=== PATIENT | female | born 2000 | race Caucasian/White ===

== ENCOUNTER 2022-04-24 11:38 | Inpatient (IN) ==
[2022-04-24 13:06] LABS: Basophils % 0.3 % (0.0-0.8); Eosinophils % 0.1 % (0.00-10.9); Hematocrit 32.8 VOL% (35.7-47.0); Hemoglobin 11.1 GM/DL (12.0-16.0); Immature Granulocytes % 0.7 %; Immature Granulocytes Absolute 0.05 #; Lymphocytes # 1.6 10*3/uL (1.4-4.0); Lymphocytes % 21.4 % (21.3-54.2); Mean Corpuscular HGB Conc 33.8 GM/DL (32-36); Mean Platelet Volume 11.1 FL (9.6-12.0); Monocytes # 0.6 10*3/uL (0.11-0.8); Monocytes % 7.5 % (1.7-12.7); Platelet Count 204 T/CUMM (130-400); Red Blood Count 4.15 MC/CUMM (3.8-5.5); White Blood Count 7.6 T/CUMM (4-12)
[2022-04-24 13:17] LABS: INR 0.9; PT Patient Result 9.7 SECS (10.5-12.0); Partial Thromboplastin Time 24.3 SECS (23.7-32.9)
[2022-04-24 13:31] LABS: Albumin 2.5 G/DL (3.4-5.0); Bilirubin,Direct 0.36 MG/DL (0.0-0.20); Bilirubin,Total 0.7 MG/DL (0.20-1.00); Osmolality,Calculated 275.4 MOS/KG (273-304); Potassium 3.1 MMOL/L (3.5-5.1); Total Protein 6.5 G/DL (6.4-8.2); Uric Acid 3.6 MG/DL (2.6-6.0)
[2022-04-24 13:32] LABS: Mucus,Urine Occasional /LPF (Occasional); RBC,Urine 9 /HPF (0-4); Squamous Epithelial Cell,Urine Occasional /HPF (0-10)
[2022-04-24 13:35] LABS: Glucose,Urine (UA) Negative (Negative); Ketones,Urine Trace mg/dL (Negative); Nitrite,Urine Negative (Negative); Protein,Urine 100 mg/dL (Negative); Urine Appearance Clear (Clear); Urine Color Dark Yellow (Yellow)
[2022-04-24 13:36] LABS: Bilirubin,Urine Small mg/dL (Negative); Blood, Urine Negative (Negative)
[2022-04-24 13:39] LABS: Protein/Creatinine Ratio,Urine 0.4 RATIO
[2022-04-24] MEDS: LACTATED RINGERS 1,000 ML IV SCH ×2 (14:37→18:47)
[2022-04-24] MEDS: POTASSIUM CHLORIDE 20 MEQ TABLET PO SCH ×2 (15:08→22:38)
[2022-04-24] MEDS ORDERED: ONDANSETRON 4 MG/2 ML VIAL IV ONE (19:04)
[2022-04-24] MEDS: MEPERIDINE 50 MG/1 ML VIAL IV PRN (20:43)
[2022-04-25] MEDS: LACTATED RINGERS 1,000 ML IV SCH ×2 (00:34→08:43)
[2022-04-25] MEDS ORDERED: MEPERIDINE 50 MG/1 ML VIAL IM PRN (01:57)
[2022-04-25] MEDS: MEPERIDINE 50 MG/1 ML VIAL IV PRN ×6 (02:12→23:07)
[2022-04-25] MEDS: ONDANSETRON 4 MG/2 ML VIAL IV PRN ×4 (02:16→21:37)
[2022-04-25] MEDS ORDERED: MEPERIDINE 50 MG/1 ML VIAL IV PRN (07:00)
[2022-04-25 07:27] LABS: Bilirubin,Urine Negative (Negative); Blood, Urine Negative (Negative); Glucose,Urine (UA) Negative (Negative); Ketones,Urine Negative (Negative); Nitrite,Urine Negative (Negative); Protein,Urine Negative (Negative); Urine Appearance Clear (Clear); Urine Color Yellow (Yellow); Urine pH 7.5 (4.5-8.0)
[2022-04-25 07:31] LABS: Amorphous Crystals,Urine Few /HPF (Few); Mucus,Urine Occasional /LPF (Occasional); RBC,Urine <1 /HPF (0-4); Squamous Epithelial Cell,Urine Occasional /HPF (0-10)
[2022-04-25 07:40] LABS: Protein/Creatinine Ratio,Urine 0.4 RATIO
[2022-04-25 07:41] LABS: Basophils % 0.3 % (0.0-0.8); Eosinophils % 0.3 % (0.00-10.9); Hematocrit 29.9 VOL% (35.7-47.0); Hemoglobin 9.7 GM/DL (12.0-16.0); Immature Granulocytes % 0.3 %; Immature Granulocytes Absolute 0.02 #; Lymphocytes # 1.9 10*3/uL (1.4-4.0); Lymphocytes % 28.4 % (21.3-54.2); Mean Corpuscular HGB Conc 32.4 GM/DL (32-36); Mean Corpuscular Volume 81.5 FL (87-102); Mean Platelet Volume 11.7 FL (9.6-12.0); Monocytes # 0.5 10*3/uL (0.11-0.8); Monocytes % 7.2 % (1.7-12.7); Neutrophils % 63.5 % (38.7-73.9); Platelet Count 163 T/CUMM (130-400); Red Blood Count 3.67 MC/CUMM (3.8-5.5); Red Cell Distribution Width 13.2 % (9.3-17.3); White Blood Count 6.6 T/CUMM (4-12)
[2022-04-25 07:51] LABS: INR 0.9; PT Patient Result 9.8 SECS (10.5-12.0); Partial Thromboplastin Time 24.6 SECS (23.7-32.9)
[2022-04-25 08:05] LABS: Albumin 2.2 G/DL (3.4-5.0); Bilirubin,Direct 0.31 MG/DL (0.0-0.20); Bilirubin,Total 0.6 MG/DL (0.20-1.00); Calcium 8.3 MG/DL (8.5-10.1); Osmolality,Calculated 270.7 MOS/KG (273-304); Potassium 3.6 MMOL/L (3.5-5.1); Total Protein 5.5 G/DL (6.4-8.2); Uric Acid 3.7 MG/DL (2.6-6.0)
[2022-04-25] MEDS: POTASSIUM CHLORIDE 20 MEQ TABLET PO SCH ×2 (09:17→21:29)
[2022-04-25] MEDS ORDERED: OXYTOCIN/LR 20 UNIT/1,000 ML BAG IV ONE (09:30)
[2022-04-25] MEDS ORDERED: miSOPROStoL 200 MCG TABLET RECTAL PRN (09:30)
[2022-04-25] MEDS ORDERED: CARBOPROST TROMETHAMINE 250 MCG/ML AMP IM PRN (09:30)
[2022-04-25] MEDS ORDERED: TRANEXAMIC ACID 1,000 MG in SODIUM CHLORIDE 0.9% 100 ML IV PRN (09:30)
[2022-04-25] MEDS ORDERED: METHYLERGONOVINE 0.2 MG/1 ML AMP IM PRN (09:30)
[2022-04-25] MEDS ORDERED: LACTATED RINGERS 1,000 ML IV ONE (09:42)
[2022-04-25] MEDS ORDERED: MAGNESIUM SULF RIDER 4 GM/100 ML PREMIX IV ONE (18:16)
[2022-04-25] MEDS ORDERED: MAGNESIUM SULF DRIP 40 GM/1,000 ML ML IV SCH (18:30)
[2022-04-25] MEDS ORDERED: FAMOTIDINE 20 MG/2 ML VIAL IV ONE (18:30)
[2022-04-25] MEDS ORDERED: CITRIC ACID/SODIUM CITRATE 30 ML UDCUP PO ONE (18:30)
[2022-04-25] MEDS ORDERED: ceFAZolin 2,000 MG/50 ML DUPLEX IV ONE (18:30)
[2022-04-25] MEDS ORDERED: ALUMINUM/MAGNES/SIMETH MAX STR 30 ML UDCUP PO PRN (19:49)
[2022-04-25] MEDS ORDERED: LABETALOL 20 MG/4 ML SYRINGE IV PRN (21:21)
[2022-04-25] MEDS ORDERED: LABETALOL 100 MG/20 ML VIAL IV PRN ×2 (21:21)
[2022-04-26] MEDS: MEPERIDINE 50 MG/1 ML VIAL IV PRN (02:11)
[2022-04-26] MEDS ORDERED: FAMOTIDINE 20 MG/2 ML VIAL IV ONE (06:00)
[2022-04-26] MEDS ORDERED: CITRIC ACID/SODIUM CITRATE 30 ML UDCUP PO ONE (06:00)
[2022-04-26] MEDS ORDERED: ceFAZolin 2,000 MG/50 ML DUPLEX IV ONE (06:00)
[2022-04-26] MEDS: LACTATED RINGERS 1,000 ML IV SCH (06:37)
[2022-04-26] MEDS ORDERED: OXYTOCIN/LR 20 UNIT/1,000 ML BAG IV ONE ×2 (07:35→08:29)
[2022-04-26] MEDS ORDERED: miSOPROStoL 200 MCG TABLET ONE (07:35)
[2022-04-26] MEDS ORDERED: SODIUM CHLORIDE 0.9% 0 ML IV ONE (07:35)
[2022-04-26] MEDS ORDERED: TRANEXAMIC ACID 1,000 MG/10 ML VIAL ONE (07:35)
[2022-04-26] MEDS ORDERED: CARBOPROST TROMETHAMINE 250 MCG/ML AMP IM ONE (07:36)
[2022-04-26 07:52] LABS: Basophils % 0.2 % (0.0-0.8); Eosinophils % 0.2 % (0.00-10.9); Hematocrit 33.3 VOL% (35.7-47.0); Hemoglobin 10.8 GM/DL (12.0-16.0); Immature Granulocytes % 0.4 %; Immature Granulocytes Absolute 0.03 #; Lymphocytes # 1.4 10*3/uL (1.4-4.0); Lymphocytes % 17.5 % (21.3-54.2); Mean Corpuscular HGB Conc 32.4 GM/DL (32-36); Mean Corpuscular Volume 81.4 FL (87-102); Mean Platelet Volume 11.9 FL (9.6-12.0); Monocytes # 0.6 10*3/uL (0.11-0.8); Monocytes % 6.9 % (1.7-12.7); Neutrophils % 74.8 % (38.7-73.9); Platelet Count 176 T/CUMM (130-400); Red Blood Count 4.09 MC/CUMM (3.8-5.5); Red Cell Distribution Width 13.2 % (9.3-17.3); White Blood Count 8.2 T/CUMM (4-12)
[2022-04-26] MEDS ORDERED: ROCURONIUM 50 MG/5 ML VIAL IV ONE (08:00)
[2022-04-26] MEDS ORDERED: propofoL 200 MG/20 ML VIAL IV ONE (08:00)
[2022-04-26] MEDS ORDERED: ONDANSETRON 4 MG/2 ML VIAL ONE ×2 (08:00→08:01)
[2022-04-26] MEDS ORDERED: SUCCINYLCHOLINE 200 MG/10 ML VIAL ONE (08:00)
[2022-04-26] MEDS ORDERED: SEVOFLURANE 1 UNIT/15 MINUTE INH ONE (08:00)
[2022-04-26] MEDS ORDERED: LIDOCAINE 2% 5 ML VIAL ONE (08:00)
[2022-04-26] MEDS ORDERED: DEXAMETHASONE 4 MG/1 ML VIAL ONE ×2 (08:01)
[2022-04-26] MEDS ORDERED: ACETAMINOPHEN INJ 1,000 MG/100 ML VIAL IV ONE (08:01)
[2022-04-26] MEDS ORDERED: KETOROLAC 30 MG/1 ML VIAL ONE (08:01)
[2022-04-26] MEDS ORDERED: fentaNYL 100 MCG/2 ML VIAL ONE (08:04)
[2022-04-26 08:20] LABS: Cord Venous Blood PCO2 48.4 MMHG; Cord Venous Blood PO2 18.9
[2022-04-26] MEDS ORDERED: ONDANSETRON 4 MG/2 ML VIAL IV PRN (08:29)
[2022-04-26] MEDS ORDERED: RHO(D) IMMUNE GLOBULIN 300 MCG SYRINGE IM ONE (08:29)
[2022-04-26] MEDS ORDERED: IBUPROFEN 800 MG TABLET PO PRN (08:29)
[2022-04-26] MEDS ORDERED: ACETAMINOPHEN 325 MG TABLET PO PRN (08:29)
[2022-04-26] MEDS ORDERED: LACTATED RINGERS 1,000 ML IV SCH ×2 (08:30→22:00)
[2022-04-26] MEDS ORDERED: NALOXONE 0.4 MG/ML VIAL ONE (08:56)
[2022-04-26] MEDS ORDERED: ACETAMINOPHEN 500 MG TABLET PO SCH (09:30)
[2022-04-26] MEDS ORDERED: LABETALOL 20 MG/4 ML SYRINGE IV ONE (09:43)
[2022-04-26] MEDS: MULTIVITAMIN (PRENATAL) TABLET PO SCH (10:43)
[2022-04-26] MEDS: DOCUSATE SODIUM 100 MG CAPSULE PO SCH ×2 (10:43→20:41)
[2022-04-26] MEDS: POTASSIUM CHLORIDE 20 MEQ TABLET PO SCH ×2 (10:43→20:34)
[2022-04-26] MEDS: oxyCODONE/ACETAMINOPHEN 5-325 MG TABLET PO PRN ×3 (11:57→23:53)
[2022-04-26] MEDS ORDERED: KETOROLAC 30 MG/1 ML VIAL IV SCH (14:00)
[2022-04-26] MEDS: KETOROLAC 30 MG/1 ML VIAL IV SCH ×2 (14:42→20:10)
[2022-04-26] MEDS: ACETAMINOPHEN 500 MG TABLET PO SCH ×2 (14:43→20:09)
[2022-04-27] MEDS: KETOROLAC 30 MG/1 ML VIAL IV SCH (01:40)
[2022-04-27] MEDS: ACETAMINOPHEN 500 MG TABLET PO SCH (01:40)
[2022-04-27 06:01] LABS: Basophils % 0.2 % (0.0-0.8); Eosinophils % 0.3 % (0.00-10.9); Hematocrit 24.7 VOL% (35.7-47.0); Hemoglobin 7.9 GM/DL (12.0-16.0); Immature Granulocytes % 0.5 %; Immature Granulocytes Absolute 0.05 #; Lymphocytes # 1.8 10*3/uL (1.4-4.0); Lymphocytes % 18.9 % (21.3-54.2); Mean Corpuscular Volume 82.1 FL (87-102); Mean Platelet Volume 11.7 FL (9.6-12.0); Monocytes # 0.7 10*3/uL (0.11-0.8); Monocytes % 7.8 % (1.7-12.7); Neutrophils % 72.3 % (38.7-73.9); Platelet Count 184 T/CUMM (130-400); Red Blood Count 3.01 MC/CUMM (3.8-5.5); White Blood Count 9.3 T/CUMM (4-12)
[2022-04-27] MEDS ORDERED: IBUPROFEN 800 MG TABLET PO PRN (07:02)
[2022-04-27] MEDS: oxyCODONE/ACETAMINOPHEN 5-325 MG TABLET PO PRN (07:07)
[2022-04-27] MEDS: DOCUSATE SODIUM 100 MG CAPSULE PO SCH ×2 (08:45→20:23)
[2022-04-27] MEDS: MAGNESIUM HYDROXIDE SUSP 30 ML UDCUP PO PRN ×2 (08:45→20:23)
[2022-04-27] MEDS: MULTIVITAMIN (PRENATAL) TABLET PO SCH (08:46)
[2022-04-27] MEDS: SIMETHICONE CHEW 80 MG TABLET PO PRN (08:46)
[2022-04-27] MEDS ORDERED: diphenhydrAMINE CAP 25 MG CAPSULE PO PRN (10:46)
[2022-04-27] MEDS: LABETALOL 100 MG TABLET PO SCH (15:21)
[2022-04-27] MEDS: POTASSIUM CHLORIDE 20 MEQ TABLET PO SCH (16:23)
[2022-04-28] MEDS: POTASSIUM CHLORIDE 20 MEQ TABLET PO SCH ×2 (00:18→15:07)
[2022-04-28] MEDS: LABETALOL 100 MG TABLET PO SCH ×2 (01:29→08:49)
[2022-04-28 07:46] VITALS: BP 131/81
[2022-04-28] MEDS: MAGNESIUM HYDROXIDE SUSP 30 ML UDCUP PO PRN (08:49)
[2022-04-28] MEDS: MULTIVITAMIN (PRENATAL) TABLET PO SCH (08:50)
[2022-04-28] MEDS: DOCUSATE SODIUM 100 MG CAPSULE PO SCH (08:50)
[2022-04-28] MEDS: SIMETHICONE CHEW 80 MG TABLET PO PRN (08:50)
[2022-04-28] MEDS ORDERED: IRON (CARBONYL)/VIT C/B12/FA TABLET PO SCH (09:00)
== END 2022-04-28 14:20 | disposition home or self-care (01) | DRG 540 ==
LOC: N.LDOUT 11:38 → N.LD 11:40 → N.OB 04-26 11:35
PROVIDERS: ADMIT Obstetrics & Gynecology; ATTEND Obstetrics & Gynecology
PROC: LDCSECT (ICD-10-PCS; 2022-04-26 07:30)